=== PATIENT | female | born 1945 | race Caucasian/White ===

== ENCOUNTER 2016-11-09 14:04 | Outpatient (CLI) | payer MEDICARE, OTHER | END 2016-11-09 14:05 | disposition home or self-care (01) | DX: Z12.31 Encounter for screening mammogram for malignant neoplasm of breast (principal); Z80.3 Family history of malignant neoplasm of breast ==

== ENCOUNTER 2019-01-31 20:32 | Outpatient (CLI) | payer MEDICARE, OTHER | END 2019-01-31 20:33 | disposition critical access hospital (66) | LOC: EMS 20:32 | PROVIDERS: ATTEND Surgery | DX: R55 Syncope and collapse (principal) | CPT/HCPCS: A0425; A0427 ==

== ENCOUNTER 2019-01-31 20:40 | Observation (INO) | payer MEDICARE, OTHER ==
--- NOTE | 2019-01-31 20:51 | ED Physician Documentation ---
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 He says she would have fallen off the chair had he not been there, but he was able to help her to ground. He says she was not responsive for approximately 3 minutes and then gradually but completely returned to baseline before medics arrived. She recalls feeling lightheaded and generalized weakness. She only c/o being "tired" on my HPI. On ROS, she admits to dyspnea, right arm paresthesias, and diarrhea; all of these are chronic (no diagnosis associated with her dyspnea; paresthesias have been attributed to diabetic neuropathy; diarrhea has been for 1 year and she has not undergone testing yet but is scheduled to have tests later this month). Review of Systems Constitutional: reports: Reviewed and negative Eyes: reports: Reviewed and negative Ears: reports: Reviewed and negative Nose: reports: Reviewed and negative Throat: reports: Reviewed and negative Cardiac: reports: Reviewed and negative Respiratory: reports: Dyspnea (chronic). denies: Cough, Hemoptysis, Wheezing GI: reports: Diarrhea. denies: Abdominal Pain, Abdominal Swelling, Nausea, Vomiting, Constipation, Hematemesis, Bloody / black stool : denies: Dysuria, Frequency Skin: reports: Reviewed and negative Musculoskeletal: reports: Reviewed and negative Neurologic: reports: Generalized weakness (immediately prior to syncope, but resolved), Numbness (RUE (chronic)), Syncope. 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 Derm: Skin cancer surgery - Present Medications Home Medications: Ambulatory Orders Medication Instructions Recorded Confirmed Gabapentin 400 mg PO TID 03/25/14 01/31/19 Glipizide 20 mg PO BID 03/25/14 01/31/19 Metformin HCl 1,000 mg PO QPM 03/25/14 01/31/19 Aspirin 1 tab PO DAILY 01/31/19 01/31/19 Cholecalciferol (Vitamin D3) 1 cap PO QPM 01/31/19 01/31/19 [Vitamin D3] Cyanocobalamin (Vitamin B-12) 1 cap PO DAILY 01/31/19 01/31/19 [Vitamin B-12] Fexofenadine HCl [ Allergy] 180 mg PO DAILY 01/31/19 01/31/19 Fluticasone [Flonase] 1 - 2 spray NS DAILY PRN 01/31/19 01/31/19 Lisinopril 10 mg PO QPM 01/31/19 01/31/19 Lisinopril 20 mg PO DAILY 01/31/19 01/31/19 Potassium &Magnesium Aspartate [Ra 1 cap PO DAILY 01/31/19 01/31/19 Potassium-Magnesium Asp 250] Simvastatin 20 mg PO QPM 01/31/19 01/31/19 - Allergies Allergies/Adverse Reactions: Allergies Allergy/AdvReac Type Severity Reaction Status Date / Time ibuprofen [From Motrin] AdvReac Unknown Verified 01/31/19 21:09 - Social History Does the pt smoke?: Yes Smoking Status: Current every day smoker Does the pt drink ETOH?: Yes Does the pt have substance abuse?: No PD ED PE NORMAL - Vitals Vital signs reviewed: Yes - General General: Alert and oriented X 3, No acute distress, Well developed/nourished - HEENT HEENT: Atraumatic, PERRL, EOMI, Moist mucous membranes - Neck Neck: Supple, no meningeal sign, No JVD - Cardiac Cardiac: RRR, No murmur, No gallop, No rub - Respiratory Respiratory: No respiratory distress, Clear bilaterally - Abdomen Abdomen: Normal bowel sounds, Soft, Non tender, Non distended - Derm Derm: Normal color, Warm and dry - Extremities Extremities: Normal ROM s pain, No edema - Neuro Neuro: Alert and oriented X 3, group activities aide 2-12 intact, No motor deficit, No sensory deficit, Normal speech Eye Opening: Spontaneous Motor: Obeys Commands Verbal: Oriented GCS Score: 15 PD ED PE EXPANDED - Rectal Rectal: Heme Occult Neg - QC+, Normal Tone, Manufacturing Shift Supervisor present Results - Vitals Vitals: Vital Signs - 24 hr 01/31/19 01/31/19 01/31/19 20:41 21:01 21:08 Temperature 36.4 C L Heart Rate 81 74 74 Respiratory 19 13 14 Rate Blood Pressure 91/50 L 89/51 L 87/45 L O2 Saturation 94 96 96 01/31/19 01/31/19 01/31/19 21:22 21:38 21:47 Temperature Heart Rate 74 87 79 Respiratory 13 26 H 15 Rate Blood Pressure 82/44 L 96/51 L 91/54 L O2 Saturation 94 94 94 Oxygen O2 Source Room air - EKG (time done) No standard instances Rate: Rate (enter#) (73) Rhythm: NSR [place]: Normal Intervals: Normal [place] QRS: Normal Ischemia: Q waves (isolated QIII) Other comments: Other comments (artifact V6 that does not impact my interpretation (contiguous leads are unremarkable)) - Labs Labs: Laboratory Tests 01/31/19 01/31/19 01/31/19 21:05 21:05 21:05 WBC 6.5 RBC 3.29 L Hgb 10.6 L Hct 32.9 L MCV 100.1 H MCH 32.1 H MCHC 32.1 RDW 14.0 Plt Count 267 MPV 7.4 L Neut # (Auto) 3.4 Lymph # (Auto) 1.9 [place] # (Auto) 0.5 Eos # (Auto) 0.6 Baso # (Auto) 0.1 Absolute Nucleated RBC 0.00 Nucleated RBC % 0.0 PT INR APTT D-Dimer Sodium 133 L Potassium 3.0 L Chloride 94 L Carbon Dioxide 19 L Anion Gap 20.0 H BUN 20 Creatinine 1.3 H Estimated GFR (MDRD) 40 L Glucose 183 H Glycated Hemoglobin Estim Average Glucose Lactic Acid Calcium 8.6 Magnesium Iron TIBC % Saturation Transferrin Total Bilirubin 0.5 AST 21 ALT 18 Alkaline Phosphatase 38 L Troponin I < 0.04 Total Protein 6.1 L Albumin 3.5 Globulin 2.6 Albumin/Globulin Ratio 1.3 Lipase 64 H Vitamin B12 Folate TSH Cortisol Urine Color Urine Clarity Urine pH Ur Specific [place] Urine Protein Urine Glucose (UA) Urine Ketones Urine Occult Blood Urine Nitrite Urine Bilirubin Urine Urobilinogen Ur Leukocyte Esterase Urine RBC Urine WBC Urine WBC Clumps Ur Squamous Epith Cells Urine Bacteria Ur Microscopic Review Urine Culture Comments Ethyl Alcohol Serum Ketones Blood Type Blood Type Recheck Antibody Screen 01/31/19 01/31/19 01/31/19 21:05 21:05 21:05 WBC RBC Hgb Hct MCV MCH MCHC RDW Plt Count MPV Neut # (Auto) Lymph # (Auto) [place] # (Auto) Eos # (Auto) Baso # (Auto) Absolute Nucleated RBC Nucleated RBC % PT INR APTT D-Dimer < 200.0 L Sodium Potassium Chloride Carbon Dioxide Anion Gap BUN Creatinine Estimated GFR (MDRD) Glucose Glycated Hemoglobin Estim Average Glucose Lactic Acid Calcium Magnesium Iron TIBC % Saturation Transferrin Total Bilirubin AST ALT Alkaline Phosphatase Troponin I Total Protein Albumin Globulin Albumin/Globulin Ratio Lipase Vitamin B12 Folate TSH 2.19 Cortisol Urine Color Urine Clarity Urine pH Ur Specific [place] Urine Protein Urine Glucose (UA) Urine Ketones Urine Occult Blood Urine Nitrite Urine Bilirubin Urine Urobilinogen Ur Leukocyte Esterase Urine RBC Urine WBC Urine WBC Clumps Ur Squamous Epith Cells Urine Bacteria Ur Microscopic Review Urine Culture Comments Ethyl Alcohol 97.0 Serum Ketones Blood Type Blood Type Recheck Antibody Screen 01/31/19 01/31/19 01/31/19 21:05 21:05 21:05 WBC RBC Hgb Hct MCV MCH MCHC RDW Plt Count MPV Neut # (Auto) Lymph # (Auto) [place] # (Auto) Eos # (Auto) Baso # (Auto) Absolute Nucleated RBC Nucleated RBC % PT 11.2 INR 1.0 APTT 24.7 L D-Dimer Sodium Potassium Chloride Carbon Dioxide Anion Gap BUN Creatinine Estimated GFR (MDRD) Glucose Glycated Hemoglobin Estim Average Glucose Lactic Acid Calcium Magnesium 1.7 Iron 25 L TIBC 304 % Saturation 8 L Transferrin 217 Total Bilirubin AST ALT Alkaline Phosphatase Troponin I Total Protein Albumin Globulin Albumin/Globulin Ratio Lipase Vitamin B12 Folate TSH Cortisol Urine Color Urine Clarity Urine pH Ur Specific [place] Urine Protein Urine Glucose (UA) Urine Ketones Urine Occult Blood Urine Nitrite Urine Bilirubin Urine Urobilinogen Ur Leukocyte Esterase Urine RBC Urine WBC Urine WBC Clumps Ur Squamous Epith Cells Urine Bacteria Ur Microscopic Review Urine Culture Comments Ethyl Alcohol Serum Ketones Blood Type Blood Type Recheck B POSITIVE Antibody Screen 01/31/19 01/31/19 01/31/19 21:05 21:05 21:05 WBC RBC Hgb Hct MCV MCH MCHC RDW Plt Count MPV Neut # (Auto) Lymph # (Auto) [place] # (Auto) Eos # (Auto) Baso # (Auto) Absolute Nucleated RBC Nucleated RBC % PT INR APTT D-Dimer Sodium Potassium Chloride Carbon Dioxide Anion Gap BUN Creatinine Estimated GFR (MDRD) Glucose Glycated Hemoglobin 6.3 H Estim Average Glucose 134 H Lactic Acid Calcium Magnesium Iron TIBC % Saturation Transferrin Total Bilirubin AST ALT Alkaline Phosphatase Troponin I Total Protein Albumin Globulin Albumin/Globulin Ratio Lipase Vitamin B12 543 Folate 7.88 TSH Cortisol 27.1 Urine Color Urine Clarity Urine pH Ur Specific [place] Urine Protein Urine Glucose (UA) Urine Ketones Urine Occult Blood Urine Nitrite Urine Bilirubin Urine Urobilinogen Ur Leukocyte Esterase Urine RBC Urine WBC Urine WBC Clumps Ur Squamous Epith Cells Urine Bacteria Ur Microscopic Review Urine Culture Comments Ethyl Alcohol Serum Ketones NEGATIVE Blood Type Blood Type Recheck Antibody Screen 01/31/19 01/31/19 01/31/19 21:20 21:20 21:36 WBC RBC Hgb Hct MCV MCH MCHC RDW Plt Count MPV Neut # (Auto) Lymph # (Auto) [place] # (Auto) Eos # (Auto) Baso # (Auto) Absolute Nucleated RBC Nucleated RBC % PT INR APTT D-Dimer Sodium Potassium Chloride Carbon Dioxide Anion Gap BUN Creatinine Estimated GFR (MDRD) Glucose Glycated Hemoglobin Estim Average Glucose Lactic Acid 8.3 H* Calcium Magnesium Iron TIBC % Saturation Transferrin Total Bilirubin AST ALT Alkaline Phosphatase Troponin I Total Protein Albumin Globulin Albumin/Globulin Ratio Lipase Vitamin B12 Folate TSH Cortisol Urine Color YELLOW Urine Clarity HAZY Urine pH 5.5 Ur Specific [place] 1.015 Urine Protein NEGATIVE Urine Glucose (UA) NEGATIVE Urine Ketones NEGATIVE Urine Occult Blood NEGATIVE Urine Nitrite NEGATIVE Urine Bilirubin NEGATIVE Urine Urobilinogen 0.2 (NORMAL) Ur Leukocyte Esterase SMALL H Urine RBC None Seen Urine WBC 11-25 H Urine WBC Clumps PRESENT Ur Squamous Epith Cells RARE Squamous Urine Bacteria Many H Ur Microscopic Review INDICATED Urine Culture Comments INDICATED Ethyl Alcohol Serum Ketones Blood Type B POSITIVE Blood Type Recheck Antibody Screen NEGATIVE - Rads (name of study) chest xray Radiology: Prelim report reviewed, See rad report PD MEDICAL DECISION MAKING - ED course Complexity details: reviewed results, re-evaluated patient, considered differential, d/w patient, d/w family ED course: Arrives to ED hypotensive (was also hypotensive in field per medic report). Her blood pressure gradually responded to IV fluids, although she did not achieve normotensive readings until first liter of NS was infused. Blood work is most notable for lactate of 8.3; combined with syncope and hypotension, will presume sepsis for now, admit and administer IV antibiotics after blood cultures obtained. - Sepsis Event Current Stage of Sepsis: Sepsis Initial Hypotension: MAP less than 65 mmHg, SBP less than 90 mmHg Possible source of Sepsis: Genitourinary Mental/Cognitive Status: Alert/Oriented X3, Normal for patient Capillary refill: Less than 2 seconds Peripheral Pulse Strength: 3+ Normal Peripheral Pulse Location: Radial Bedside ultrasound performed: No Departure - Departure Disposition: ED Place in Observation Clinical Impression: Syncope Qualifiers: Syncope type: unspecified Qualified Code(s): R55 - Syncope and collapse Urinary tract infection Qualifiers: Urinary tract infection type: acute cystitis Hematuria presence: without hematuria Qualified Code(s): N30.00 - Acute cystitis without hematuria Condition: Stable Discharge Date/Time: 01/31/19 23:35
[2019-01-31] MEDS ORDERED: SODIUM CHLORIDE 0.9% 1,000 ML IV ONE ×2 (21:06→21:07)
[2019-01-31 21:13] LABS: BASOPHILS # (AUTO) 0.1 10^3/uL (0.0-0.1); BASOPHILS % (AUTO) 0.9 %; EOSINOPHILS # (AUTO) 0.6 10^3/uL (0.0-0.7); EOSINOPHILS % (AUTO) 9.4 %; HGB - HEMOGLOBIN 10.6 g/dL (12.0-16.0); LYMPHOCYTES # (AUTO) 1.9 10^3/uL (1.5-3.5); LYMPHOCYTES % (AUTO) 29.7 %; MEAN CORPUSCULAR HEMOGLOBIN 32.1 pg (27.0-31.0); MEAN CORPUSCULAR HGB CONC 32.1 g/dL (32.0-36.0); MEAN CORPUSCULAR VOLUME 100.1 fL (81.0-99.0); MEAN PLATELET VOLUME 7.4 fL (7.9-10.8); MONOCYTES # (AUTO) 0.5 10^3/uL (0.0-1.0); MONOCYTES % (AUTO) 7.6 %; NEUTROPHILS # (AUTO) 3.4 10^3/uL (1.5-6.6); NEUTROPHILS % (AUTO) 52.4 %; PLT - PLATELET COUNT 267 10^3/uL (130-450); RED BLOOD COUNT 3.29 10^6/uL (4.20-5.40); WHITE BLOOD COUNT 6.5 x10^3/uL (4.8-10.8)
[2019-01-31 21:25] LABS: ALBUMIN 3.5 g/dL (3.2-5.5); ALBUMIN/GLOBULIN RATIO 1.3 (1.0-2.2); BILIRUBIN,TOTAL 0.5 mg/dL (0.2-1.0); CALCIUM 8.6 mg/dL (8.5-10.3); CREATININE 1.3 mg/dL (0.4-1.0); TOTAL PROTEIN 6.1 g/dL (6.7-8.2)
[2019-01-31] MEDS ORDERED: SODIUM CHLORIDE 0.9% 1,000 ML IV STA (21:29)
--- NOTE | 2019-01-31 21:31 | XRAY Report ---
Reason: syncope Procedure Date: 01/31/2019 Accession Number: [id number] / [id number] Procedure: XR - Chest 1 View X-Ray CPT Code: 22090 FULL RESULT: EXAM: CHEST RADIOGRAPHY EXAM DATE: 01/31/2019 09:10 PM. CLINICAL HISTORY: Syncope. COMPARISON: 03/25/2014 1:31 PM. TECHNIQUE: Upright AP view. Patient mildly rotated toward the right. FINDINGS: Lungs/Pleura: No focal opacities evident. No pleural effusion. No pneumothorax. Mediastinum: Heart size upper normal and unchanged. Other: None. IMPRESSION: No evidence of active cardiopulmonary disease. RADIA
[2019-01-31 21:39] LABS: BILIRUBIN,URINE NEGATIVE (NEGATIVE); GLUCOSE, URINE (UA) NEGATIVE (NEGATIVE); KETONES,URINE (UA) NEGATIVE (NEGATIVE); LEUKOCYTE ESTERASE, URINE SMALL (NEGATIVE); NITRITE,URINE NEGATIVE (NEGATIVE); OCCULT BLOOD,URINE NEGATIVE (NEGATIVE); PH,URINE 5.5 PH (5.0-7.5); PROTEIN,URINE NEGATIVE (NEGATIVE); UROBILINOGEN,URINE 0.2 (NORMAL) E.U./dL (NORMAL)
[2019-01-31 21:40] LABS: CLARITY,URINE HAZY (CLEAR)
[2019-01-31 21:47] LABS: BACTERIA,URINE Many /HPF (None Seen); RBC,URINE None Seen /HPF (0-5); SQUAMOUS EPITHELIAL CELL,UR RARE Squamous (<= Few); WBC CLUMPS,URINE PRESENT
[2019-01-31] MEDS ORDERED: VANCOMYCIN INJ 1.75 GM in SODIUM CHLORIDE 0.9% 500 ML IV STA (21:57)
[2019-01-31] MEDS ORDERED: cefTRIAXone 1 GM in SODIUM CHLORIDE 0.9% MINIBAG 100 ML IV STA (21:57)
[2019-01-31] MEDS ORDERED: SODIUM CHLORIDE 0.9% 500 ML IV STA (22:01)
[2019-01-31] MEDS ORDERED: TEMAZEPAM 15 MG CAPSULE PO PRN (22:17)
[2019-01-31] MEDS ORDERED: HYDROcod/ACETAM 5/325 MG TABLET PO PRN (22:17)
[2019-01-31] MEDS ORDERED: ONDANSETRON ODT 4 MG TABLET TL PRN (22:17)
[2019-01-31] MEDS ORDERED: SODIUM CHLORIDE FLUSH 0.9% 10 ML SYRINGE IVP PRN (22:17)
[2019-01-31] MEDS ORDERED: ZOLPIDEM 5 MG TABLET PO PRN (22:17)
[2019-01-31 22:21] LABS: PT - PROTHROMBIN TIME 11.2 secs (9.9-12.6)
[2019-01-31] MEDS ORDERED: MIDODRINE 2.5 MG TABLET PO PRN (22:22)
[2019-01-31] MEDS ORDERED: FLUTICASONE NASAL SPRAY NAS PRN (22:26)
[2019-01-31 22:28] LABS: PARTIAL THROMBOPLASTIN TIME 24.7 secs (24.9-33.3)
[2019-01-31] MEDS ORDERED: POTASSIUM CHLORIDE 20 MEQ TABLET PO STA (22:28)
--- NOTE | 2019-01-31 22:31 | HISTORY & PHYSICAL EXAMINATION ---
Chief Complaint - Chief Complaint Chief Complaint: Syncope History of Present Illness - Admitted From Admitted From:: ED - History Obtained From Records Reviewed: yes History obtained from: Patient and staff, ED Exam Limitations: none - History of Present Illness HPI Comment/Other: This is a pleasant 74 y/o diabetic female with History of hyperlipidemia, type 2 diabetes mellitus, HTN, obesity, current every day smoker, ETOH drinker, macrocytic anemia with vit b12 def p/w syncopal event. Patient had just finished dinner but was still seated when noticed she was drooping her head and not responding to him. He says she would have fallen off the chair had he not been there, but he was able to help her to ground. He says she was not responsive for approximately 3 minutes and then gradually but completely return ed to baseline before medics arrived. She recalls feeling lightheaded and generalized weakness. She only c/o being "tired" on ED exam. On ROS, she admits to dyspnea, right arm paresthesias, and diarrhea; all of these are chronic (no diagnosis associated with her dyspnea; paresthesias have been attributed to diabetic neuropathy; however does have vitamin b12 def, diarrhea has been for 1 year and she has not undergone testing yet but is scheduled to have tests later this month. Patient has been on home meds of metformin, neurontin, ASA, vitamin D, lisinopril, zocor, glipizide, B12, , potassium and mag supplements. On Labs she had a Sodium of 130, Potassium of 3.0, creat 1.3 (last normal oin [facility] was 0.8 in 2014. CBC showed macrocytic anemia with normal WBC, no fevers, however hypotensive despite IVF bolus in ED. Lactic acid markedly elevated at 8.3. Hgb 10.6 which was drop from 2014 at 13.6, but FOBT x1 neg. ECG shows SR at 73 bpm. D-dimer<200, trop x 1 neg w/ negative CXR. LFT's, lipase was unremarkable. ETOH level was elevatedat 97, w/ asymptomatic pyruria on UA. NO ketones but with a co2 19, glucose 183. 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 Derm: reports: Skin cancer surgery - POLST Patient has POLST: No Meds/Allgy - Home Medications Home Medications: Ambulatory Orders Medication Instructions Recorded Confirmed Gabapentin 400 mg PO TID 03/25/14 01/31/19 Glipizide 20 mg PO BID 03/25/14 01/31/19 Metformin HCl 1,000 mg PO QPM 03/25/14 01/31/19 Aspirin 1 tab PO DAILY 01/31/19 01/31/19 Cholecalciferol (Vitamin D3) 1 cap PO QPM 01/31/19 01/31/19 [Vitamin D3] Cyanocobalamin (Vitamin B-12) 1 cap PO DAILY 01/31/19 01/31/19 [Vitamin B-12] Fexofenadine HCl [ Allergy] 180 mg PO DAILY 01/31/19 01/31/19 Fluticasone [Flonase] 1 - 2 spray NS DAILY PRN 01/31/19 01/31/19 Lisinopril 10 mg PO QPM 01/31/19 01/31/19 Lisinopril 20 mg PO DAILY 01/31/19 01/31/19 Potassium &Magnesium Aspartate [Ra 1 cap PO DAILY 01/31/19 01/31/19 Potassium-Magnesium Asp 250] Simvastatin 20 mg PO QPM 01/31/19 01/31/19 - Allergies Allergies/Adverse Reactions: Allergies Allergy/AdvReac Type Severity Reaction Status Date / Time ibuprofen [From Motrin] AdvReac Unknown Verified 01/31/19 21:09 Review of Systems - All Other Systems All Other Systems: reports: Reviewed and negative Prior Level of Functionality: Unknown level of functional capacity home ADL's Exam - Vital Signs Vital Signs: Vital Signs x48h Temp Pulse Resp BP Pulse Ox 01/31/19 21:47 79 15 91/54 L 94 01/31/19 21:38 87 26 H 96/51 L 94 01/31/19 21:22 74 13 82/44 L 94 01/31/19 21:08 74 14 87/45 L 96 01/31/19 21:01 74 13 89/51 L 96 01/31/19 20:41 36.4 C L 81 19 91/50 L 94 Sepsis Event Note (H) - Evaluation Possible source of Sepsis: positive: Genitourinary (asymptomatic ) - Sepsis Criteria Sepsis Criteria: SBP less than 90 mmHg, Metabolic: lactate > 2 mmol/L Conclusion/Plan - Problem List (1) SIRS (systemic inflammatory response syndrome) Conclusion/Plan: Likely secondary to combined or multi-factorial cause such as BP medications with metformin along with possible neurontin induced drug effect. Although UA shows pyuria this is completely asymptomatic and would defer treatment for now despite markedly elevated lactic acid which maybe attributable to alcoholic and metformin induced ketosis. Blood cultures x 2 drawn in ED. Would continue aggres sive IVF resuscitation. Correct electrolytes. Avoid nephrotoxic agents. Lactic acid trending. Cortisol level was unremarkable. (2) Electrolyte abnormality Conclusion/Plan: Secondary to chronic diarrhea with GI losses. Patient has coexisting prerenal azotemia with acute mild renal insufficiency. Patient had previously been on Mylanta and Pepto-Bismol as she thought this may help with her chronic diarrhea. Aggressive IVF resuscitation and electrolyte repletion, check and correct magnesium and potassium levels. (3) Chronic diarrhea Conclusion/Plan: Perhaps related to metformin use. Would place on lactobacillus. Supportive care with loperamide as needed. Unlikely infectious w/ no abd pain, leukocytosis or fevers. DDx: Diarrhea predominant IBS. Patient has an appointment to see a lehr cutter at [facility]. (4) Lactic acidosis Conclusion/Plan: elevated lactic acid which maybe attributable to alcoholic and metformin induced ketosis. Would treat supportively with IVF's, hold Metformin for now. (5) Macrocytic anemia with vitamin B12 deficiency Conclusion/Plan: Vitamin B12 levels as well as folic acid were normal. Patient does have mild iron deficiency anemia. IV Ferrlecit will be given. No bleeding seen and with negative FOBT. Continue to monitor. (6) Arm paresthesia, left Conclusion/Plan: Perhaps secondary to b12 deficiency vs DM neuropathy, Folic acid and vitamin B12 were normal. Correct if needed. Hold off on Neurontin for now. (7) ETOH abuse Conclusion/Plan: Would query on etoh withdrawals and the abuse potential in combining alcohol with neurontin which may precipitate syncopal events. Consider CIWA. Place on MVI, thiamine as well as FA. (8) Alcoholic ketosis Conclusion/Plan: Combined ketosis w/ lacitc acidosis maybe present with mild metabolic acidosis seen with co2 19 on admission. However, serum/urine ketones were negative. IVF's, correct electrolytes, lactic acid trending. (9) Hypotension Conclusion/Plan: Cortisol level was unremarkable. Obtain orthostats and treat with midodrine with parameters, although I suspect a multifactorial component of drug induced or ETOH induced syncopal event related to hypotension. DDx: sepsis, blood cultures to follow. Qualifiers: Hypotension type: hypotension due to drug Qualified Code(s): I95.2 - Hypotension due to drugs (10) Syncope Conclusion/Plan: Multi-factorial and likely related to ETOh abuse with combined BP meds and neurontin use precipitating a symptomatic hypotension with syncope. Would treat medically with IVF's, cortisol level to follow and eval for other metabolic c auses. Qualifiers: Syncope type: unspecified Qualified Code(s): R55 - Syncope and collapse (11) Renal insufficiency, mild Conclusion/Plan: Patient's prior creatinine was 0.8 in 2013 likely related to patient's use of metformin with mild metabolic acidosis and alcoholic ketosis coexisting. Will hold metformin lisinopril and any other offending agents for now. Perfuse kidneys with IV fluids and electrolyte repletion. (12) Type 2 diabetes mellitus Conclusion/Plan: Patient is a type 2 diabetes mellitus patient with no insulin use. Initial glucose was 183. Hemoglobin A1c to follow. Patient will be placed on a correctional insulin sliding scale along with Accu-Cheks before meals and at bedtime. Metformin as well as glipizide will be placed on hold due to patient's lactic acidosis on presentation. Qualifiers: Diabetes mellitus complication status: without complication (13) Advanced care planning/counseling discussion Conclusion/Plan: Medical management was discussed with patient and plan of care. Discussion about patient's medical conditions were initiated with trajectory of illness and symptom management. Patient's CODE STATUS was discussed and is a full code. POLST should be filled out on this admission. - Lab Results Lab results reviewed: Yes Fish Bones: 01/31/19 21:05 01/31/19 21:05 - Diagnostic Imaging Results Diagnostic Imaging Results: positive: Final report reviewed - EKG Results EKG Interpreted Independently: Yes EKG Comparison: Old EKG unavailable Core Measures - Anticipated LOS I expect patient to be DC'd or transferred within 96 hours.: Yes - Issues Hospital Issues and Management Plan: Electrolyte repletion, IVF's, med mgmt, hold offending agents, correct BP's. Possible PT - DVT/VTE - Prophylaxis VTE/DVT Device ordered at admit?: Yes VTE/DVT Prophylaxis med ordered at admit?: Yes - Stroke - Rehab Assessment Rehab services assessment to be ordered?: No - AMI - Statin at Admit Aspirin Prescribed on Admit: Yes
[2019-01-31 22:57] LABS: HB2 TOTAL 11.2 g/dL; HEMOGLOBIN A1C 0.51 g/dL; HEMOGLOBIN A1C % 6.3 % (4.6-6.2)
[2019-01-31 22:58] LABS: MAGNESIUM 1.7 mg/dL (1.7-2.8)
[2019-01-31] MEDS ORDERED: LORazepam 1 MG TABLET PO PRN (23:14)
[2019-01-31] MEDS ORDERED: MAGNESIUM SULFATE 2 GRAM 2 GM/50 ML BAG IV ONE (23:15)
[2019-01-31] MEDS ORDERED: FERRIC GLUCONATE 125 MG in SODIUM CHLORIDE 0.9% 100ML 100 ML IV ONE (23:15)
[2019-01-31] MEDS ORDERED: LOPERAMIDE 2 MG CAPSULE PO PRN (23:18)
[2019-01-31 23:23] LABS: CORTISOL 27.1 ug/dL
[2019-01-31 23:36] LABS: FOLATE 7.88 ng/mL (5.90 - >24.8)
[2019-02-01] MEDS: SODIUM CHLORIDE FLUSH 0.9% 10 ML SYRINGE IVP SCH ×2 (00:04→09:04)
[2019-02-01] MEDS: NS W/20 MEQ KCL 1,000 ML IV SCH ×2 (00:04→06:36)
[2019-02-01] MEDS: THIAMINE 100 MG TABLET PO SCH ×2 (00:11→08:39)
[2019-02-01 06:21] LABS: BASOPHILS % (AUTO) 0.5 %; EOSINOPHILS # (AUTO) 0.4 10^3/uL (0.0-0.7); EOSINOPHILS % (AUTO) 4.9 %; HGB - HEMOGLOBIN 10.8 g/dL (12.0-16.0); LYMPHOCYTES # (AUTO) 1.8 10^3/uL (1.5-3.5); LYMPHOCYTES % (AUTO) 23.9 %; MEAN CORPUSCULAR HEMOGLOBIN 32.7 pg (27.0-31.0); MEAN CORPUSCULAR HGB CONC 33.1 g/dL (32.0-36.0); MEAN CORPUSCULAR VOLUME 98.9 fL (81.0-99.0); MEAN PLATELET VOLUME 7.5 fL (7.9-10.8); MONOCYTES # (AUTO) 0.6 10^3/uL (0.0-1.0); MONOCYTES % (AUTO) 7.6 %; NEUTROPHILS # (AUTO) 4.7 10^3/uL (1.5-6.6); NEUTROPHILS % (AUTO) 63.1 %; PLT - PLATELET COUNT 257 10^3/uL (130-450); RED BLOOD COUNT 3.31 10^6/uL (4.20-5.40); RED CELL DISTRIBUTION WIDTH 14.1 % (12.0-15.0); WHITE BLOOD COUNT 7.5 x10^3/uL (4.8-10.8)
[2019-02-01 06:22] LABS: PT - PROTHROMBIN TIME 11.3 secs (9.9-12.6)
[2019-02-01 06:29] LABS: ALBUMIN 3.4 g/dL (3.2-5.5); ALBUMIN/GLOBULIN RATIO 1.4 (1.0-2.2); BILIRUBIN,TOTAL 0.6 mg/dL (0.2-1.0); CALCIUM 8.1 mg/dL (8.5-10.3); CREATININE 1.1 mg/dL (0.4-1.0); TOTAL PROTEIN 5.9 g/dL (6.7-8.2)
[2019-02-01 06:31] LABS: ALBUMIN 3.2 g/dL (3.2-5.5); PHOSPHORUS 2.9 mg/dL (2.5-4.6)
[2019-02-01] MEDS ORDERED: LORazepam 1 MG TABLET PO PRN (07:49)
[2019-02-01] MEDS ORDERED: MULTIVITAMIN W/MINERALS TABLET PO SCH (08:00)
[2019-02-01] MEDS: INSULIN ASPART 300 UNIT/3 ML PEN SUBQ SCH ×2 (08:44→12:08)
[2019-02-01] MEDS ORDERED: LACTOBACILLUS RHAMNOSUS GG CAPSULE PO SCH (09:00)
[2019-02-01] MEDS ORDERED: FOLIC ACID 1 MG TABLET PO SCH (09:00)
[2019-02-01] MEDS ORDERED: POLYETHYLENE GLYCOL 3350 17 GM PACKET PO SCH (09:00)
[2019-02-01] MEDS ORDERED: CYANOCOBALAMIN 500 MCG TABLET PO SCH (09:00)
[2019-02-01] MEDS ORDERED: ENOXAPARIN 40 MG/0.4 ML SYRINGE SUBQ SCH (09:00)
[2019-02-01] MEDS ORDERED: FAMOTIDINE 20 MG TABLET PO SCH (09:00)
[2019-02-01] MEDS ORDERED: ASPIRIN CHEW 81 MG TABLET PO SCH (09:00)
[2019-02-01] MEDS ORDERED: SODIUM CHLORIDE 0.9% 1,000 ML IV SCH (09:00)
[2019-02-01 10:15] VITALS: BP 137/68
--- NOTE | 2019-02-01 12:40 | Discharge Plan ---
Discharge Plan Disposition: 01 Home, Self Care Condition: Poor Diet: Diabetic Activity Restrictions: Activity as Tolerated Shower Restrictions: No (fall precaution) Instruction Topics: Metformin tablets Additional Instructions or Follow Up instructions: You may followup your PCP in one week. Your lactic acid level was significantly elevated, your WBC is normal and you have no fever. You was found to have significant dehydration today. Your A1C is 6.3 today. You report Metformin made you to have diarrhea. Advise you hold your Metformin now and followup your PCP for further management of your diabetes. You report you feel much better today after treatment. Your EKG is normal sinus rhythm. You may have ECHO as out-pt as needed. Should your symptoms report or worsen, you may present ER or call 911 for help. No Smoking: If you smoke, Please STOP! Call for help. Follow-up with: Sim Alvarado MD [Primary Care Provider] -
--- NOTE | 2019-02-01 12:55 | DISCHARGE SUMMARY ---
Discharge Summary Discharge Date: 02/01/19 Discharging Provider: ENGLISH Primary Care Provider: Dr. Alvarado Condition at Discharge: Poor Discharge Disposition: 01 Home, Self Care Discharge Facility Name: home - DIAGNOSES Admission Diagnoses: (1) SIRS (systemic inflammatory response syndrome) (2) Electrolyte abnormality (3) Chronic diarrhea (4) Lactic acidosis (5) Macrocytic anemia with vitamin B12 deficiency (6) Arm paresthesia, left (7) ETOH abuse (8) Alcoholic ketosis (9) Hypotension (10) Syncope (11) Renal insufficiency, mild (12) Type 2 diabetes mellitus (13) Advanced care planning/counseling discussion Discharge Diagnoses with Status of Each Condition: (1) Electrolyte abnormality (2) Chronic diarrhea (3) Lactic acidosis (5) Arm paresthesia, left (6) ETOH abuse (8) Hypotension (9) Syncope (10) Renal insufficiency, mild (11) Type 2 diabetes mellitus - HPI History of Present Illness: refer from Dr. Pickering's HPI on 01/31/19 as the following This is a pleasant 74 y/o diabetic female with History of hyperlipidemia, type 2 diabetes mellitus, HTN, obesity, current every day smoker, ETOH drinker, macrocytic anemia with vit b12 def p/w syncopal event. Patient had just finished dinner but was still seated when noticed she was drooping her head and not responding to him. He says she would have fallen off the chair had he not been there, but he was able to help her to ground. He says she was not responsive for approximately 3 minutes and then gradually but completely returned to baseline before medics arrived. She recalls feeling lightheaded and generalized weakness. She only c/o being "tired" on ED exam. On ROS, she admits to dyspnea, right arm paresthesias, and diarrhea; all of these are chronic (no diagnosis associated with her dyspnea; paresthesias have been attributed to diabetic neuropathy; however does have vitamin b12 def, diarrhea has been for 1 year and she has not undergone testing yet but is scheduled to have tests later this month. Patient has been on home meds of metformin, neurontin, ASA, vitamin D, lisinopril, zocor, glipizide, B12, , potassium and mag supplements. On Labs she had a Sodium of 130, Potassium of 3.0, creat 1.3 (last normal oin [facility] was 0.8 in 2014. CBC showed macrocytic anemia with normal WBC, no fevers, however hypotensive despite IVF bolus in ED. Lactic acid markedly elevated at 8.3. Hgb 10.6 which was drop from 2014 at 13.6, but FOBT x1 neg. ECG shows SR at 73 bpm. D-dimer<200, trop x 1 neg w/ negative CXR. LFT's, lipase was unremarkable. ETOH level was elevatedat 97, w/ asymptomatic pyruria on UA. NO ketones but with a co2 19, glucose 183. - HOSPITAL COURSE Hospital Course: 1) Electrolyte abnormality resolved (2) Chronic diarrhea no more in hospital. advise pt d/c Metformin. pt report Metformin cause her diarrhea. pt had A1C 6.3. Pt had Glipizide at home. Pt had elevated Lactic acid 8.3 at admission. After d/c Metformin, pt's lactic acid is down to the normal. (3) Lactic acidosis resolved (4) Arm paresthesia, left resolved. pt has no more complaints (5) ETOH abuse advise pt for ETOH abuse (6) Hypotension resolved (7) Syncope resolved. it may be caused pt's dehydration, electrolyte abnormality, and elevated lactic acid, and pt's alcohol drink. ECHO was ordered for pt. but hospital did not have ECHO the day. advise pt can have ECHO as needed as out-pt setting. (8) Renal insufficiency, mild resolved as pt's baseline. Creatinine is 1 now (9) Type 2 diabetes mellitus stable. advise pt d/c Metformin. pt report Metformin cause her diarrhea. pt had A1C 6.3. Pt had Glipizide at home. Pt had elevated Lactic acid 8.3 at admission. After d/c Metformin, pt's lactic acid is down to the normal. - ALLERGIES Allergies/Adverse Reactions: Allergies Allergy/AdvReac Type Severity Reaction Status Date / Time ibuprofen [From Motrin] AdvReac Unknown Verified 01/31/19 21:09 - MEDICATIONS Home Medications: Ambulatory Orders Medication Instructions Recorded Confirmed Gabapentin 400 mg PO TID 03/25/14 01/31/19 Glipizide 20 mg PO BID 03/25/14 01/31/19 Aspirin 81 mg PO DAILY 01/31/19 02/01/19 Cholecalciferol (Vitamin D3) 1,000 unit PO QPM 01/31/19 02/01/19 [Vitamin D3] Cyanocobalamin (Vitamin B-12) 1,000 mcg PO DAILY 01/31/19 02/01/19 [Vitamin B-12] Fexofenadine HCl [ Allergy] 180 mg PO DAILY 01/31/19 01/31/19 Fluticasone [Flonase] 1 - 2 spray NS DAILY PRN 01/31/19 01/31/19 Lisinopril 10 mg PO QPM 01/31/19 01/31/19 Lisinopril 20 mg PO DAILY 01/31/19 01/31/19 Potassium &Magnesium Aspartate [Ra 1 cap PO DAILY 01/31/19 01/31/19 Potassium-Magnesium Asp 250] Simvastatin 20 mg PO QPM 01/31/19 01/31/19 - PHYSICAL EXAM AT DISCHARGE General Appearance: positive: No acute distress, Alert. negative: Lethargic Eyes Bilateral: positive: Normal inspection, PERRL, No lid inflammation, Conjunctivae nml ENT: positive: ENT inspection nml, Pharynx nml, No signs of dehydration. negative: Purulent nasal drainage, Pharyngeal erythema, Oral lesions Neck: positive: Nml inspection, Thyroid nml, No JVD, Trachea midline. negative: Thyromegaly, Lymphadenopathy (R), Lymphadenopathy (L), Stiff neck, Swelling/bruising, Tracheal deviation Respiratory: positive: Chest non-tender, No respiratory distress, Breath sounds nml. negative: Wheezes, Rales, Rhonchi Cardiovascular: positive: Regular rate & rhythm, No murmur, No gallop. negative: Irregularly irregular, Extrasystoles, Tachycardia, Bradycardia, JVD present, Systolic murmur, Diastolic murmur Peripheral Pulses: positive: 2+ Abdomen: positive: Non-tender, No organomegaly, Nml bowel sounds, No distention. negative: Tenderness, Guarding, Rebound Back: positive: Nml inspection. negative: CVA tenderness (R), CVA tenderness (L) Skin: positive: Color nml, No rash, Warm, Dry. negative: Cyanosis, Diaphoresis, Pallor Extremities: positive: Non-tender, Full ROM, Nml appearance. negative: Calf tenderness, Joint swelling, Dilia's sign/cords Neurologic/Psychiatric: positive: Oriented x3, Motor nml, Sensation nml, Mood/affect nml. negative: Weakness, Sensory loss, Facial droop, Slurred/abnml speech, Depressed mood/affect - LABS Result Diagrams: 02/01/19 06:00 02/01/19 06:00 - SEPSIS Possible source of Sepsis: Genitourinary Sepsis Criteria: SBP less than 90 mmHg, Metabolic: lactate > 2 mmol/L - FOLLOW UP Follow Up: You may followup your PCP in one week. Your lactic acid level was significantly elevated, your WBC is normal and you have no fever. You was found to have significant dehydration today. Your A1C is 6.3 today. You report Metformin made you to have diarrhea. Advise you hold your Metformin now and followup your PCP for further management of your diabetes. You report you feel much better today after treatment. Your EKG is normal sinus rhythm. You may have ECHO as out-pt as needed. Should your symptoms report or worsen, you may present ER or call 911 for help. - TIME SPENT Time Spent in Discharge (Minutes): 55
[2019-02-01] MEDS ORDERED: ATORVASTATIN 40 MG TABLET PO SCH (21:00)
[2019-02-01] MEDS ORDERED: CHOLECALCIFEROL 1,000 UNIT TABLET PO SCH (21:00)
== END 2019-02-01 13:49 | disposition home or self-care (01) ==
LOC: EDUNIT# → ED 20:40 → OBS 22:17
PROVIDERS: ADMIT Family Medicine; ATTEND Family Medicine
DX: E87.6 Hypokalemia (principal); E87.1 Hypo-osmolality and hyponatremia; E86.0 Dehydration; K52.1 Toxic gastroenteritis and colitis; E87.2 Acidosis; T38.3X5A Adverse effect of insulin and oral hypoglycemic [antidiabetic] drugs, initial encounter; Y92.009 Unspecified place in unspecified non-institutional (private) residence as the place of occurrence of the external cause; R20.2 Paresthesia of skin; F10.10 Alcohol abuse, uncomplicated; Y90.4 Blood alcohol level of 80-99 mg/100 ml; I95.9 Hypotension, unspecified; R55 Syncope and collapse; N28.9 Disorder of kidney and ureter, unspecified; E11.9 Type 2 diabetes mellitus without complications; R53.1 Weakness; N39.0 Urinary tract infection, site not specified; D51.9 Vitamin B12 deficiency anemia, unspecified; I10 Essential (primary) hypertension; E78.5 Hyperlipidemia, unspecified; E66.9 Obesity, unspecified; Z68.34 Body mass index [BMI] 34.0-34.9, adult; F17.200 Nicotine dependence, unspecified, uncomplicated; Z79.84 Long term (current) use of oral hypoglycemic drugs; Z79.82 Long term (current) use of aspirin; Z85.828 Personal history of other malignant neoplasm of skin
CPT/HCPCS: 36415; 51701; 71045; 80053; 80069; 81001; 82009; 82533; 82607; 82746; 83036; 83540; 83605; 83690; 83735; 84466; 84484; 85025; 85379; 85610; 85730; 86850; 86900; 86901; 87040; 87086; 87181; 87275; 87276; 93005; 96361; 96365; 96366; 96367; 99284; 99285; A9270; G0378; J2916; J3370; J8499; 80320; 81003; 84443; 96360

== ENCOUNTER 2019-12-18 08:49 | Outpatient (CLI) | payer MEDICARE, OTHER ==
--- NOTE | 2019-12-18 10:42 | Mammography Report ---
Reason: 1.5 CM LUMP RT AXILL TAIL OF BREAST Procedure Date: 12/18/2019 Accession Number: [id number] / [id number] Procedure: BRE - Diagnostic Dig Bilat CPT Code: Final Report FULL RESULT: EXAM: Diagnostic Dig Bilat DATE: 12/18/2019 10:03 AM CLINICAL HISTORY: Diagnostic examination. Family history of breast cancer in the mother at the age of 58 and a sister at the age of 60. History of early menses. The patient presents with a palpable right breast lump. TECHNIQUE: (B) - Bilateral CC and MLO views were obtained. Right breast spot CC, spot MLO and ML views are obtained. Focused right breast ultrasound is performed. COMPARISON: 11/09/2016 and 11/05/2014. PARENCHYMAL PATTERN: (A) - The breast(s) demonstrate(s) scattered fibroglandular densities. FINDINGS: The palpable lump corresponds to interval development of a hyperdense right upper outer breast axillary tail mass measuring 2.0 x 1.9 cm with ill-defined borders and surrounding architectural distortion in the 10:00 axis approximately 13 cm from the nipple. Focused right breast ultrasound of the same area demonstrates the mass to be hypoechoic and ill-defined with shadowing. The mass is amenable to ultrasound-guided biopsy. There are no suspicious masses, calcifications, or areas of distortion in the left breast. IMPRESSION: Highly suggestive for malignancy. BI-RADS category 5. RECOMMENDATION: (BIOPSY) - right breast axillary tail ultrasound-guided biopsy. BI-RADS CATEGORY: (5) - Highly suggestive for malignancy. STANDARD QUALIFYING STATEMENTS: 1. This examination was not reviewed with the aid of Computer-Aided Detection (CAD). 2. A negative or benign imaging report should not preclude biopsy if clinically suspicious findings are present. 3. Dense breasts may obscure an underlying neoplasm. 4. This examination was reviewed with the aid of 3D breast imaging (tomosynthesis).
== END 2019-12-18 08:50 | disposition home or self-care (01) ==
LOC: DI 08:49
PROVIDERS: ATTEND Family Medicine
DX: N63.31 Unspecified lump in axillary tail of the right breast (principal); Z80.3 Family history of malignant neoplasm of breast
CPT/HCPCS: 76642; 77066

== ENCOUNTER 2019-12-20 12:30 | Outpatient (CLI) | payer MEDICARE, OTHER ==
[2019-12-20] MEDS ORDERED: BUFFERED LIDOCAINE 10 ML SYRINGE ONE (12:40)
[2019-12-20] MEDS ORDERED: BUFFERED LIDOCAINE 10 ML SYRINGE IU ONE (15:37)
--- NOTE | 2019-12-20 16:01 | Ultrasound Report ---
Reason: ABNORMAL MAMMO - RT BREAST MASS Procedure Date: 12/20/2019 Accession Number: [id number] / [id number] Procedure: US - Biopsy Breast Core CPT Code: Final Report FULL RESULT: PROCEDURE: Ultrasound-guided needle biopsy right breast mass. CLINICAL DATA: Targeted mass measuring 1.9 x 1.5 x 1.5 cm with irregular margins in the 10 o'clock axis of the right breast. Informed consent was obtained. Using standard aseptic technique, 1% buffered lidocaine was injected into the right breast for local anesthesia. A small jesus was made in the skin with a #11 blade. A 12-gauge [employer] vacuum-assisted device was used to obtain 4 specimens. A specialized biopsy marker clip was placed into the biopsy cavity under ultrasound guidance. The patient was taken to separate mammography machine and a two-view digital mammography was performed to verify the clip placement and any complications. The mammography showed concordant clip position with expected postbiopsy changes. The wound was dressed and ice applied. The patient was observed for approximately 15 minutes, then was discharged from diagnostic imaging Department in good condition following instructions on wound care and obtaining biopsy results. The patient is scheduled to receive the biopsy results from the referring physician. The tissue was sent for histologic analysis. IMPRESSION: Ultrasound-guided biopsy of the right breast. AN ADDENDUM WILL BE MADE TO THIS REPORT WHEN PATHOLOGY IS REVIEWED TO ESTABLISH CONCORDANCE.
== END 2019-12-20 12:31 | disposition home or self-care (01) ==
LOC: DI 12:30
PROVIDERS: ATTEND Family Medicine
DX: C50.411 Malignant neoplasm of upper-outer quadrant of right female breast (principal); Z17.1 Estrogen receptor negative status [ER-]
CPT/HCPCS: 19083; 88305; 88341; 88342; 88360

== ENCOUNTER 2020-04-22 19:08 | Outpatient (CLI) | payer MEDICARE, OTHER | END 2020-04-22 23:59 | disposition EMS.NT | LOC: EMS 19:08 | PROVIDERS: ATTEND Surgery | DX: R55 Syncope and collapse (principal); R53.1 Weakness ==

== ENCOUNTER 2020-11-02 11:20 | Outpatient (CLI) | payer MEDICARE, OTHER ==
--- NOTE | 2020-11-02 13:42 | Ultrasound Report ---
PROCEDURE: Retroperitoneal INDICATIONS: HYDRONEPHROSIS TECHNIQUE: Real-time scanning was performed of the retroperitoneal organs, with image documentation. COMPARISON: None. FINDINGS: Kidneys: Kidneys are normal in size. Right kidney measures 10.3 cm long; left kidney measures 9.3 c m long. Right renal cortical thickness is 0.8 cm; left renal cortical thickness is 1 cm. No solid m asses or hydronephrosis. There is potential mild perinephric fluid. Lobulated kidney contours are seen. Bilateral obstructing kidney stones are seen, which measure up to 7 mm on the right and up to 13 mm o n the left. Potential duplicated collecting systems are present, yet this is not well seen. Bladder: The prevoid bladder volume is 526 cc. The post void bladder volume is 142 cc. Both ureteral jets can be seen. IMPRESSION: No hydronephrosis is seen on either side. Moderate postvoid residual, 142 cc. Bilateral nonobstructing kidney stones are seen. Reviewed by: Demond Varner MD on 11/02/2020 12:41 PM [place] Approved by: Demond Varner MD on 11/02/2020 12:41 PM [place] Station ID: [id number]
== END 2020-11-02 11:21 | disposition home or self-care (01) ==
LOC: DI 11:20
PROVIDERS: ATTEND Urology
DX: N20.0 Calculus of kidney (principal)

== ENCOUNTER 2021-01-19 10:11 | Outpatient (CLI) | payer MEDICARE, OTHER ==
--- NOTE | 2021-01-19 13:33 | Ultrasound Report ---
PROCEDURE: Retroperitoneal INDICATIONS: HYDROURETERONEPHROSIS TECHNIQUE: Real-time scanning was performed of the retroperitoneal organs, with image documentation. COMPARISON: Ultrasound 11/02/2020 FINDINGS: Kidneys: Kidneys are normal in size. Right kidney measures 11.0 cm long; left kidney measures 11.0 cm long. Right renal cortical thickness is 1.3 cm; left renal cortical thickness is 1.3 cm. There is mild caliectasis and pelviectasis of the right kidney, similar degree compared to the prior study. No change post void. Nonobstructing upper and lower pole nephrolithiasis is present bilaterall y, the largest stone in the right kidney measures 10 mm in the upper pole. The largest stone in the l eft kidney is 11 mm in the midpole. Urinary bladder: The prevoid bladder volume is 509 cc with postvoid residual of 137 cc. Bilateral ure teral jets were seen in the filled urinary bladder. No bladder wall thickening, bladder mass, debris, or bladder calcification. Incidental note is made of a vague heterogeneously hyperechoic right hepatic lobe lesion measuring up to 5.2 cm. IMPRESSION: 1. Very mild right hydronephrosis, stable compared to the prior study and persistent post void. 2. Bilateral nonobstructing nephrolithiasis. 3. Moderate-sized postvoid residual, similar compared to the prior study. 4. Questionable 5.2 cm right lobe liver lesion. Correlate with any prior cross-sectional imaging of t he abdomen and if this has not been previously evaluated, consider CT or MRI with hepatic protocol. Reviewed by: Deisy Apodaca MD on 01/19/2021 12:32 PM [facility] Approved by: Deisy Apodaca MD on 01/19/2021 12:32 PM [place] Station ID: [id number]
== END 2021-01-19 10:12 | disposition home or self-care (01) ==
LOC: DI 10:11
PROVIDERS: ATTEND Urology
DX: N13.30 Unspecified hydronephrosis (principal); N20.0 Calculus of kidney; K76.9 Liver disease, unspecified